=== PATIENT | female | born 1945 | race Caucasian/White ===

== ENCOUNTER 2016-08-18 09:44 | Outpatient (CLI) | payer MEDICARE, BC ==
[2016-08-18 10:06] LABS: Bilirubin Negative (Negative); Blood, Urine Trace (Negative); Clarity Clear (Clear); Glucose, Urine (Dipstick) Negative (Negative); Leukocyte Trace (Negative); Nitrite Negative (Negative); Protein, Urine (Dipstick) Negative (Neg-Trace); Urobilinogen 0.2 mg/dL (0.2-1.0)
[2016-08-18 10:11] LABS: Bacteria/HPF None Seen HPF (None Seen); RBC/HPF 0-3 HPF (0-3); Squamous Epithelial 0-3 HPF (0-3); WBC/HPF 0-3 HPF (0-3)
[2016-08-18 11:14] LABS: ALT (SGPT) 15 U/L (0-55); AST (SGOT) 24 U/L (5-34); Albumin 4.2 g/dL (3.4-4.8); Alkaline Phosphatase 28 U/L (40-150); Anion Gap 16 mmol/L (10-20); BUN (Urea Nitrogen) 14 mg/dL (9.8-20.1); Bilirubin, Total 0.5 mg/dL (0.2-1.2); Calc. Creatinine Clearance 0 mL/min (70-130); Calcium 9.3 mg/dL (7.8-10.44); Carbon Dioxide 26 mmol/L (23-31); Cardiac Risk 3.3 (Less than 4.5); Chloride 105 mmol/L (98-107); Cholesterol 205 mg/dL (< 200 Desired); Estimated GFR-MDRD 67; Globulin 2.6 g/dL (2.4-3.5); Glucose 67 mg/dL (80-115); HDL Cholesterol 63 mg/dL (>60 Neg Risk); LDL Cholesterol, Calculated 123 mg/dL; Potassium 4.5 mmol/L (3.5-5.1); Protein, Total 6.8 g/dL (5.8-8.1); Sodium 142 mmol/L (136-145); Triglycerides 95 mg/dL (Less than 150)
[2016-08-18 11:35] LABS: Free T4 (Free Thyroxine) 0.92 ng/dL (0.70-1.48); Thyroid Stimulating Hormone 2.1063 uIU/mL (0.35-4.94)
== END 2016-08-18 09:45 | disposition home or self-care (01) ==
LOC: BURLAB 09:44
PROVIDERS: ATTEND Internal Medicine
DX: E04.1 Nontoxic single thyroid nodule (principal)
CPT/HCPCS: 36415; 80053; 80061; 81001; 84439; 84443

== ENCOUNTER 2016-09-06 09:12 | Outpatient (CLI) | payer MEDICARE, BC ==
[2016-09-06 11:33] LABS: Bilirubin Negative (Negative); Blood, Urine Negative (Negative); Clarity Slightly Cloudy (Clear); Glucose, Urine (Dipstick) Negative (Negative); Leukocyte Negative (Negative); Nitrite Negative (Negative); Protein, Urine (Dipstick) Negative (Neg-Trace); Urobilinogen 0.2 mg/dL (0.2-1.0)
[2016-09-06 11:41] LABS: Bacteria/HPF Rare-Few HPF (None Seen); RBC/HPF None Seen HPF (0-3); Squamous Epithelial 0-3 HPF (0-3); WBC/HPF 0-3 HPF (0-3)
[2016-09-06 11:49] LABS: Platelet Count 183 thou/uL (130-400); White Blood Cell (WBC) Count 6.4 thou/uL (4.8-10.8)
[2016-09-06 12:05] LABS: Hemoglobin 13.4 g/dL (12.0-16.0); Mean Corpuscular HGB CONC 34.8 g/dL (32.0-36.0); Mean Corpuscular Hemoglobin 34.2 pg (27.0-31.0); Mean Corpuscular Volume 98.4 fl (81.0-99.0); Mean Platelet Volume 7.7 fL (7.4-10.4); RBC Distribution Width 11.9 % (11.5-14.5); Red Blood Cell (RBC) Count 3.92 mill/uL (4.20-5.40)
[2016-09-06 12:22] LABS: Band 3 % (5-11); Eosinophils 6 % (0-10); Lymphocytes 19 % (21-51); MDiff Complete? YES; Monocytes 13 % (0-10); Neutrophil 58 % (42-75)
[2016-09-06 18:36] LABS: Hep C IgG Ab Non-Reactive (NonReactive); Hep C Index 0.15 S/CO (0-0.79)
== END 2016-09-06 09:13 | disposition home or self-care (01) ==
LOC: BURLAB 09:12
PROVIDERS: ATTEND Internal Medicine
DX: Z13.818 Encounter for screening for other digestive system disorders (principal); K21.0 Gastro-esophageal reflux disease with esophagitis; R31.9 Hematuria, unspecified
CPT/HCPCS: 36415; 81001; 85025; 86803; 87086

== ENCOUNTER 2022-11-18 13:19 | Emergency (ER) | payer MEDICARE, BC ==
[2022-11-18] MEDS ORDERED: Cephalexin 250 MG CAP ONE (13:46)
== END 2022-11-18 13:50 | disposition home or self-care (01) ==
LOC: BURERS 13:19
DX: L03.032 Cellulitis of left toe (principal); E78.5 Hyperlipidemia, unspecified; I10 Essential (primary) hypertension
CPT/HCPCS: 99283